=== PATIENT | male | born 1980 | race Caucasian/White ===

== ENCOUNTER 2023-09-20 15:40 | Emergency (ER) | payer BC ==
[~2023-09-20] VITALS: Ht 180.3 cm; Wt 104.3 kg
[2023-09-20 15:57] VITALS: BP_SYST 128; PULSE 98; RESP 18; TEMP 97.3; O2SAT 96
[2023-09-20] MEDS ORDERED: IBUP-1969 PO (18:54)
[2023-09-20] MEDS ORDERED: HYDR-3917 PO (18:54)
[2023-09-20 19:35] VITALS: BP_SYST 131; PULSE 82; RESP 17; TEMP 97.3; O2SAT 98
== END 2023-09-20 19:35 | disposition home or self-care (01) ==
LOC: SED 15:40
DX: S20.212A Contusion of left front wall of thorax, initial encounter (principal); Z79.899 Other long term (current) drug therapy; V89.2XXA Person injured in unspecified motor-vehicle accident, traffic, initial encounter; Y93.89 Activity, other specified; Y92.89 Other specified places as the place of occurrence of the external cause; Y99.8 Other external cause status
CPT/HCPCS: 71045; 71100; 99284